=== PATIENT | female | born 2000 | race Two or more races ===

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

== ENCOUNTER 2020-01-30 21:12 | Emergency (ER) | payer MEDICAID ==
[~2020-01-30] VITALS: Ht 170.2 cm; Wt 77.1 kg
[2020-01-30 22:13] LABS: Basophils # (auto) 0 10 ^3/uL (0-0.2); Hemoglobin 11.8 g/dL (12.2-16.2); Lymphocytes # (auto) 1.9 10 ^3/uL (0.4-5.4); Red Cell Distribution Width 14.9 % (11.8-14.3)
[2020-01-30 22:15] LABS: Basophils % (auto) 0.4 % (0.0-2.0); Eosinophils # (auto) 0.1 10 ^3/uL (0-0.8); Eosinophils % (auto) 0.6 % (0.0-7.0); Hematocrit 35.5 % (36.0-46.0); Lymphocytes % (auto) 22.7 % (10.0-50.0); Mean Corpuscular Hemoglobin 25.3 pg (28.0-32.0); Mean Corpuscular Hgb Conc. 33.2 g/dL (32.0-36.0); Mean Corpuscular Volume 76.3 fL (80.0-100.0); Monocytes % (auto) 11.6 % (0.0-12.0); Neutrophils # (auto) 5.5 10 ^3/uL (1.6-8.6); Neutrophils % (auto) 64.7 % (37.0-80.0); Platelet Count (auto) 313 10^3/uL (140-450); Red Blood Cells 4.65 10^6/uL (4.0-5.20); White Blood Cell 8.5 10^3/uL (4.4-10.8)
[2020-01-30] MEDS ORDERED: KETOROLAC TROMETH 15 mg/ml 1ML VL IV ONE (22:15)
[2020-01-30] MEDS ORDERED: IBUPROFEN 800 MG TAB PO ONE (22:15)
[2020-01-30 22:18] LABS: Alanine Aminotransferase 18 U/L (13-56); Albumin 3.6 g/dL (3.4-5.0); Anion Gap 6 (5-15); Aspartate Aminotransferase 13 U/L (15-37); BUN/Creatinine Ratio 13.4; Blood Urea Nitrogen 13 mg/dL (7-18); Calcium 8.8 mg/dL (8.5-10.1); Carbon Dioxide 23 mmol/L (21-32); Chloride 110 mmol/L (98-107); GFR African American 95 mL/min; GFR Non-African American 79 mL/min; Glucose 79 mg/dL (74-106); Potassium 3.8 mmol/L (3.5-5.1); Sodium 139 mmol/L (136-145)
[2020-01-30 22:23] LABS: Alkaline Phosphatase 73 U/L (45-117); Bilirubin, Total 0.5 mg/dL (0.2-1.0); Total Protein 7.1 g/dL (6.4-8.2)
[2020-01-31 01:07] VITALS: BP 95/62
== END 2020-01-31 01:49 | disposition home or self-care (01) ==
LOC: EDBD 21:12 → ER 21:13
DX: S16.1XXA Strain of muscle, fascia and tendon at neck level, initial encounter (principal); S83.8X2A Sprain of other specified parts of left knee, initial encounter; S20.212A Contusion of left front wall of thorax, initial encounter; V89.2XXA Person injured in unspecified motor-vehicle accident, traffic, initial encounter; X50.3XXA Overexertion from repetitive movements, initial encounter; Y93.89 Activity, other specified; Y92.89 Other specified places as the place of occurrence of the external cause; Y99.8 Other external cause status
CPT/HCPCS: 36415; 70450; 71111; 72125; 73030; 73562; 80053; 84484; 84702; 85025

== ENCOUNTER → 2020-05-11 | Emergency (ER) | payer MEDICAID ==
[~2020-05-11] VITALS: Ht 177.8 cm; Wt 90.7 kg
[~2020-05-11] MED LIST changes: +SODIUM CHLORIDE 0.9% 500 ML IVB ONE
[2020-05-11 14:46] VITALS: BP 133/80
== END | disposition home or self-care (01) ==
LOC: EDUNIT# 14:31 → EDBD 14:39 → ER 14:39
DX: T42.4X2A Poisoning by benzodiazepines, intentional self-harm, initial encounter (principal); S80.812A Abrasion, left lower leg, initial encounter; S80.811A Abrasion, right lower leg, initial encounter; F12.188 Cannabis abuse with other cannabis-induced disorder; X78.8XXA Intentional self-harm by other sharp object, initial encounter; Y93.89 Activity, other specified; Y92.89 Other specified places as the place of occurrence of the external cause; Y99.8 Other external cause status; Y92.9 Unspecified place or not applicable

== ENCOUNTER 2021-08-06 13:53 | Emergency (ER) | payer MEDICAID ==
[~2021-08-06] VITALS: Ht 167.6 cm; Wt 77.1 kg
[~2021-08-06 13:53] MED LIST changes: -SODIUM CHLORIDE 0.9% 500 ML IVB ONE
[2021-08-06 14:06] VITALS: BP 128/80
== END 2021-08-06 15:06 ==
LOC: EDUNIT# 13:53 → ER 13:53 → EDBD 13:53 → ER 15:06
DX: S20.211A Contusion of right front wall of thorax, initial encounter (principal); S09.90XA Unspecified injury of head, initial encounter; J45.909 Unspecified asthma, uncomplicated; F17.210 Nicotine dependence, cigarettes, uncomplicated; Z79.899 Other long term (current) drug therapy; Y04.2XXA Assault by strike against or bumped into by another person, initial encounter; Y93.89 Activity, other specified; Y92.89 Other specified places as the place of occurrence of the external cause; Y99.8 Other external cause status
CPT/HCPCS: 70450; 71101

== ENCOUNTER 2024-06-20 23:39 | Emergency (ER) | payer MEDICAID ==
[~2024-06-20] VITALS: Ht 165.1 cm; Wt 108.0 kg
[2024-06-21 00:02] VITALS: BP 130/90; PULSE 100; RESP 18; O2SAT 97
[2024-06-21 00:19] LABS: Basophils # (auto) 0 10 ^3/uL (0-0.2); Hematocrit 35.2 % (36.0-46.0); Hemoglobin 11.4 g/dL (12.2-16.2); White Blood Cell 11.7 10^3/uL (4.4-10.8)
[2024-06-21 00:20] LABS: Basophils % (auto) 0.2 % (0.0-2.0); Eosinophils # (auto) 0.1 10 ^3/uL (0-0.8); Eosinophils % (auto) 0.9 % (0.0-7.0); Lymphocytes # (auto) 3.1 10 ^3/uL (0.4-5.4); Lymphocytes % (auto) 26.8 % (10.0-50.0); Mean Corpuscular Hemoglobin 22.2 pg (28.0-32.0); Mean Corpuscular Hgb Conc. 32.4 g/dL (32.0-36.0); Mean Corpuscular Volume 68.6 fL (80.0-100.0); Monocytes # (auto) 0.7 10 ^3/uL (0-1.3); Monocytes % (auto) 6.4 % (0.0-12.0); Neutrophils # (auto) 7.7 10 ^3/uL (1.6-8.6); Neutrophils % (auto) 65.7 % (37.0-80.0); Platelet Count (auto) 487 10^3/uL (140-450); Red Blood Cells 5.13 10^6/uL (4.0-5.20); Red Cell Distribution Width 17.5 % (11.8-14.3)
[2024-06-21 00:28] LABS: Alanine Aminotransferase 21 U/L (7-40); Albumin 4.5 g/dL (3.2-4.8); Alkaline Phosphatase 73 U/L (46-116); Anion Gap 5 (5-15); Aspartate Aminotransferase 16 U/L (13-40); BUN/Creatinine Ratio 5.2 (10.0-20.0); Bilirubin, Total 0.5 mg/dL (0.2-1.0); Blood Urea Nitrogen 5 mg/dL (9-23); Calcium 9.4 mg/dL (8.7-10.4); Carbon Dioxide 24 mmol/L (20-30); Chloride 111 mmol/L (98-107); Glucose 95 mg/dL (74-106); Potassium 3.3 mmol/L (3.5-5.1); Sodium 140 mmol/L (136-145); Total Protein 7.3 g/dL (5.7-8.2)
[2024-06-21 00:59] LABS: Hypochromia Moderate; Platelet Estimate Increased
[2024-06-21 01:01] LABS: Ovalocytes FEW
[2024-06-21 01:02] LABS: Stomatocytes Few
[2024-06-21] MEDS ORDERED: LORazepam 2MG/ML-1ML VIAL IV ONE (01:15)
[2024-06-21] MEDS ORDERED: POTASSIUM CHL 20 Meq TABLET PO ONE (01:15)
[2024-06-21] MEDS ORDERED: KETOROLAC TROMETH 30 MG/ML 1ML VIAL IV ONE (01:15)
[2024-06-21] MEDS ORDERED: SODIUM CHLORIDE 0.9% 1,000 ML IV ONE (01:15)
== END 2024-06-21 06:21 | disposition home or self-care (01) ==
LOC: ER 23:39
DX: R07.89 Other chest pain (principal); F15.10 Other stimulant abuse, uncomplicated; J45.909 Unspecified asthma, uncomplicated; F41.9 Anxiety disorder, unspecified; F32.9 Major depressive disorder, single episode, unspecified; F17.210 Nicotine dependence, cigarettes, uncomplicated; Z79.899 Other long term (current) drug therapy
CPT/HCPCS: 36415; 71045; 80053; 83880; 84484; 85025; 93005